=== PATIENT | male | born 1955 | race Caucasian/White ===

== ENCOUNTER 2021-07-15 11:51 | Emergency (ER) | payer MEDICAID ==
[~2021-07-15] VITALS: Ht 188 cm; Wt 77.3 kg
[2021-07-15 11:55] VITALS: BP 144/96
[2021-07-15] MEDS ORDERED: AMOX-101 PO (14:15)
[2021-07-15] MEDS ORDERED: MECL-159 PO (14:15)
[2021-07-15] MEDS ORDERED: acetaminophen 325mg tablet PO ONE (14:55)
== END 2021-07-15 15:07 | disposition home or self-care (01) ==
LOC: ER 11:52
DX: J06.9 Acute upper respiratory infection, unspecified (principal); H92.02 Otalgia, left ear; R50.9 Fever, unspecified; R42 Dizziness and giddiness; J44.9 Chronic obstructive pulmonary disease, unspecified
CPT/HCPCS: 69209; 99283